=== PATIENT | male | born 1980 | race Caucasian/White ===

== ENCOUNTER 2017-08-21 03:35 | Emergency (ER) | payer MEDICAID, OTHER ==
[2017-08-21] MEDS ORDERED: Acetaminophen/HYDROcodone 325-5 MG Tab PO ONE (04:12)
--- NOTE | 2017-08-21 04:18 | EDM.PDOC ---
ED HPI GENERAL MEDICAL PROBLEM - General Chief Complaint: Lower Extremity Injury/Pain Stated Complaint: ROLLED RIGHT ANKLE Time Seen by Provider: 08/21/17 03:58 Source of Information: Reports: Patient, RN Notes Reviewed History Limitations: Reports: No Limitations - History of Present Illness INITIAL COMMENTS - FREE TEXT/NARRATIVE: Here with his Chief complaint Right ankle injury History of presenIllness About 10 PM this 36-year-old male Joya who is on vacation from [place] Stepping from a deck onto the ground, stepped into hole, rolling right ankle No other injuries Pain was mild initially but has kept him up from much of the night. Did have acetaminophen once No other injuries Right Ankle Pain Score (Numeric/FACES): 5 - Related Data Allergies Allergy/AdvReac Type Severity Reaction Status Date / Time No Known Allergies Allergy Verified 08/21/17 03:49 Home Meds: Home Meds NK [No Known Home Meds] 08/21/17 [History] Past Medical History - Infectious Disease History Infectious Disease History: Reports: Chicken Pox Social & Family History - Tobacco Use Used Tobacco, but Quit: No Second Hand Smoke Exposure: No - Caffeine Use Caffeine Use: Reports: Coffee - Alcohol Use Days Per Week of Alcohol Use: 0 - Recreational Drug Use Recreational Drug Use: No Review of Systems - Review of Systems Review Of Systems: ROS reveals no pertinent complaints other than HPI. Musculoskeletal: Reports: Other (Pain and swelling outside of right ankle) ED EXAM, GENERAL - Physical Exam Exam: See Below Exam Limited By: No Limitations General Appearance: Alert, Mild Distress, Other (Normal vital signs, no difficulty speaking or breathing) Head: Atraumatic, Normocephalic Neck: Normal Inspection Respiratory/Chest: No Respiratory Distress Cardiovascular: Normal Peripheral Pulses Back Exam: Normal Inspection Extremities: Joint Swelling (Lateral malleolus right ankle) Neurological: Alert, Oriented Psychiatric: Normal Affect Skin Exam: Warm, Dry, Intact, Normal Color, No Rash Course - Vital Signs Last Recorded V/S: Last Vital Signs Temp 36.9 C 08/21/17 03:55 Pulse 72 08/21/17 03:55 Resp 16 08/21/17 03:55 BP 113/72 08/21/17 03:55 Pulse Ox 98 08/21/17 03:55 - Orders/Labs/Meds Orders: Active Orders 24 hr Category Date Time Status Orthopedic Treatments [RC] ASDIRECTED Care 08/21/17 04:12 Ordered Meds: Medications Discontinued Medications Generic Name Dose Route Start Last Admin Trade Name Catherine PRN Reason Stop Dose Admin Hydrocodone Bitart/Acetaminophen 2 tab 08/21/17 04:12 08/21/17 04:17 [place] 325-5 Mg PO 08/21/17 04:13 2 tab ONETIME ONE Administration - Re-Assessments/Exams Free Text/Narrative Re-Assessment/Exam: 08/21/17 04:14 36-year-old male with inversion injury of right ankle Using ankle guidelines, does not need x-rays Chance of fracture is quite low He came in because the pain was keeping him awake Hydrocodone/acetaminophen 5/325, 2 tablets by mouth Ankle brace He's able to weight-bear at least partially so does not need crutches Continue acetaminophen or ibuprofen Departure - Departure Time of Disposition: 04:16 Disposition: Home, Self-Care 01 Condition: Good Clinical Impression: Right ankle sprain Qualifiers: Encounter type: initial encounter Involved ligament of ankle: unspecified ligament Qualified Code(s): S93.401A - Sprain of unspecified ligament of right ankle, initial encounter - Discharge Information Instructions: Ankle Sprain, Ankle Exercises-SportsMed Referrals: PCP,None [Primary Care Provider] - Forms: ED Department Discharge Additional Instructions: Stay as active as possible Ibuprofen or acetaminophen can be helpful for the pain Get rechecked if you really injury, or if worsening symptoms - My Orders Last 24 Hours: My Active Orders 08/21/17 04:12 Orthopedic Treatments [RC] ASDIRECTED - Assessment/Plan Last 24 Hours: My Active Orders 08/21/17 04:12 Orthopedic Treatments [RC] ASDIRECTED
== END 2017-08-21 04:45 | disposition home or self-care (01) ==
LOC: JP.ED 03:35
DX: S93.401A Sprain of unspecified ligament of right ankle, initial encounter (principal); X58.XXXA Exposure to other specified factors, initial encounter
CPT/HCPCS: 99283; A9270